=== PATIENT | female | born 1950 | race Caucasian/White ===

== ENCOUNTER 2020-11-29 10:27 | Emergency (ER) | payer MEDICARE, SELFPAY ==
--- NOTE | ~2020-11-29 | XR_ITS ---
EXAMINATION: XR elbow LT min 3V DATE: 11/29/2020 11:04 INDICATION: Lateral left elbow pain post fall TECHNIQUE: Anteroposterior, two oblique and lateral views of the left elbow were obtained. COMPARISON: None. FINDINGS: Nondisplaced comminuted fractures of the distal left radius. This includes a transverse fracture plan e extending from the medial nonarticular margin of the trochlea near the footplate of the medial moriah ateral ligament to the lateral epicondylar region. From this fracture line extends an additional sagi ttally oriented fracture plane to the articular surface at the medial side of the capitellum. No sign ificant fracture gap or incongruity. No fracture of the proximal left radius or ulna. Alignment remai ns essentially anatomic. Joint spaces are relatively preserved with small joint effusion which displa juana the anterior but not the posterior fat pad. IMPRESSION: 1. Nondisplaced comminuted intra-articular fracture of the distal left humerus. Reviewed, dictated and finalized at location A.
[2020-11-29 10:37] VITALS: BP 103/76; PULSE 68; RESP 16; TEMP 37.2; O2SAT 100
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
== END 2020-11-29 12:30 | disposition home or self-care (01) ==
PROVIDERS: Emergency Provider Nurse Practitioner Family
DX: S42.402A Unspecified fracture of lower end of left humerus, initial encounter for closed fracture (principal); W18.30XA Fall on same level, unspecified, initial encounter; J45.909 Unspecified asthma, uncomplicated; E78.00 Pure hypercholesterolemia, unspecified
CPT/HCPCS: 29105; 73080; 99214; A4565; G0463